=== PATIENT | female | born 1990 | race Caucasian/White ===

== ENCOUNTER 2016-10-09 05:41 | Inpatient (IN) ==
[2016-10-09] MEDS ORDERED: MEPERIDINE 50 MG/1 ML VIAL IV PRN (05:57)
[2016-10-09] MEDS ORDERED: ONDANSETRON 4 MG/2 ML VIAL IV PRN (05:57)
[2016-10-09] MEDS: LACTATED RINGERS 1,000 ML IV SCH ×2 (06:16→09:58)
[2016-10-09 07:04] LABS: Basophils % 0.4 % (0.0-0.8); Eosinophils # 0.1 10*3/uL (0.0-0.87); Eosinophils % 1.3 % (0.00-10.9); Hematocrit 38.1 VOL% (35.7-47.0); Hemoglobin 12.1 GM/DL (12.0-16.0); Immature Granulocytes % 0.8 %; Immature Granulocytes Absolute 0.08 #; Lymphocytes # 2.4 10*3/uL (1.4-4.0); Lymphocytes % 23.2 % (21.3-54.2); Mean Corpuscular HGB Conc 31.8 GM/DL (32-36); Mean Corpuscular Hemoglobin 28 PG (27-34); Mean Platelet Volume 10.6 FL (9.6-12.0); Monocytes # 0.7 10*3/uL (0.11-0.8); Monocytes % 6.8 % (1.7-12.7); Neutrophils % 67.5 % (38.7-73.9); Platelet Count 252 T/CUMM (130-400); Red Blood Count 4.28 MC/CUMM (3.8-5.5); Red Cell Distribution Width 13.7 % (9.3-17.3); White Blood Count 10.4 T/CUMM (4-12)
[2016-10-09] MEDS ORDERED: fentaNYL 2 MCG/ROPIV 0.2% EPID 150 ML EPIDURAL SCH (07:18)
[2016-10-09] MEDS ORDERED: FAMOTIDINE 20 MG/2 ML VIAL IV ONE (07:18)
[2016-10-09] MEDS ORDERED: ePHEDrine 50 MG/ML AMP IV PRN (07:18)
[2016-10-09] MEDS ORDERED: PROMETHAZINE 25 MG/1 ML VIAL IM ONE (07:18)
[2016-10-09] MEDS ORDERED: CITRIC ACID/SODIUM CITRATE 30 ML UDCUP PO ONE (07:18)
[2016-10-09] MEDS ORDERED: hydrOXYzine HCL 25 MG/1 ML VIAL IM PRN (07:18)
[2016-10-09] MEDS ORDERED: diphenhydrAMINE 50 MG/1 ML VIAL IV PRN ×2 (07:18)
[2016-10-09] MEDS ORDERED: LACTATED RINGERS 1,000 ML IV SCH ×2 (07:30)
[2016-10-09] MEDS ORDERED: OXYTOCIN/LR 20 UNIT/1,000 ML BAG IV SCH (07:30)
[2016-10-09 07:33] LABS: Albumin 2.8 G/DL (3.4-5.0); Calcium 8.4 MG/DL (8.5-10.1); Osmolality,Calculated 282.8 MOS/KG (273-304); Potassium 3.9 MMOL/L (3.5-5.1); Total Protein 6.3 G/DL (6.4-8.3)
[2016-10-09 12:49] LABS: Apearance,Urine CLEAR (Clear); Bilirubin,Urine Negative (Negative); Blood, Urine Negative (Negative); Glucose,Urine (UA) Negative (Negative); Hyaline Casts,Urine 1 /LPF (0-3); Ketones,Urine 5 mg/dL (Negative); Mucus,Urine Occasional /LPF (Occasional); Nitrite,Urine Negative (Negative); Protein,Urine Negative; RBC,Urine <1 /HPF (0-4); Urine Color Yellow (Yellow); Urine Specific Gravity 1.013 (1.001-1.035); Urine Urobilinogen < 2.0 EU/DL (0.2-1.0); WBC,Urine <1 /HPF (0-6)
[2016-10-09] MEDS ORDERED: BENZOCAINE 20%/MENTHOL 0.5% SPRAY 56 GM CAN TOP PRN (18:23)
[2016-10-09] MEDS: DOCUSATE SODIUM 100 MG CAPSULE PO SCH (21:35)
[2016-10-09] MEDS: IBUPROFEN 800 MG TABLET PO PRN (21:35)
[2016-10-09] MEDS ORDERED: OXYTOCIN/LR 20 UNIT/1,000 ML BAG IV ONE (21:52)
--- NOTE | 2016-10-10 01:32 | History and Physical Update ---
History and Physical Update - Dictation Physical: refer to scanned H&P - Physical Exam Mental Status: alert and oriented Heart: regular rate and rhythm Lung: clear to auscultation Abdomen: within normal limits Vitals: within normal limits History and Physical Changes: at 39 weeks admitted on 10/09/16 for induction. GBS negative. No complications. Labs wnl.
[2016-10-10 05:26] LABS: Basophils # 0.1 10*3/uL (0.0-0.2); Basophils % 0.4 % (0.0-0.8); Eosinophils # 0.1 10*3/uL (0.0-0.87); Eosinophils % 0.7 % (0.00-10.9); Hematocrit 32.8 VOL% (35.7-47.0); Hemoglobin 10.6 GM/DL (12.0-16.0); Immature Granulocytes % 0.7 %; Immature Granulocytes Absolute 0.09 #; Lymphocytes # 2.2 10*3/uL (1.4-4.0); Lymphocytes % 17.1 % (21.3-54.2); Mean Corpuscular HGB Conc 32.3 GM/DL (32-36); Mean Corpuscular Hemoglobin 29 PG (27-34); Mean Corpuscular Volume 88.2 FL (87-102); Mean Platelet Volume 10.7 FL (9.6-12.0); Monocytes % 7.5 % (1.7-12.7); Neutrophils # 9.5 10*3/uL (1.4-7.4); Neutrophils % 73.6 % (38.7-73.9); Platelet Count 189 T/CUMM (130-400); Red Blood Count 3.72 MC/CUMM (3.8-5.5); Red Cell Distribution Width 13.8 % (9.3-17.3); White Blood Count 12.9 T/CUMM (4-12)
--- NOTE | 2016-10-10 07:30 | OB/GYN Progress Note ---
Assessment and Plan (1) Perineal laceration with delivery, second degree Status: Acute Assessment and plan: Routine care Current Visit: Yes TRAVEL REGISTERED NURSE ONCOLOGY - PN: Subj Interval history: PPD#1 Doing well without complaints. Exam TRAVEL REGISTERED NURSE ONCOLOGY - Constitutional Vitals: Vital Signs Temp Pulse Resp BP Pulse Ox 10/10/16 03:45 97.3 F L 74 20 118/76 97 10/10/16 00:10 97.6 F 71 20 120/70 98 10/09/16 21:00 98.1 F 100 H 20 115/72 97 10/09/16 20:00 98.4 F 102 H 20 98 10/09/16 19:00 98 H 18 128/80 98 10/09/16 18:30 97 H 20 125/78 98 10/09/16 18:00 98.6 F 87 18 130/75 98 10/09/16 16:00 98.6 F 62 22 102/62 10/09/16 12:00 97.3 F L 98 H 18 121/82 98 10/09/16 08:00 98.5 F 90 20 111/87 General appearance: normal weight, no acute distress - Head Head exam: Present: normal inspection, normocephalic - Eye Eye exam: Present: EOMI - Respiratory Respiratory exam: Present: clear to auscultation bilaterally - Cardiovascular Cardiovascular exam: Present: regular rate and rhythm - GI/Abdominal GI/Abdominal exam: Present: soft (fundus firm, nontender) - Extremities Exam Extremities exam: Present: normal inspection - Neurological Exam Neurological exam: Present: alert, oriented X3 - Psychiatric Psychiatric exam: Present: normal affect, normal mood - Skin Skin exam: Present: normal color, warm Results - Labs CBC & BMP: 10/10/16 04:19 10/09/16 06:09 Lab Results: I have reviewed the past 24 hour labs
--- NOTE | 2016-10-10 07:32 | Discharge Summary ---
Hospital Course - Hospital Course Hospital Course: Pt admitted for induction. She delivered without complication. Her course has been unremarkable. Diagnosis - Discharge Diagnosis (1) Perineal laceration with delivery, second degree Status: Acute Discharge Plan - Discharge Data Disposition: Disch To Home/Self Care Condition at Discharge: Stable Discharge Diet: regular diet Activity: other (pelvic rest x 6 wks) Hygiene: may shower Weight Bearing at Discharge: full weight bearing Driving: no restrictions Contact your physician if you experience:: fever over 101, Difficulty voiding, Redness or swelling, Nausea/Vomiting, Shortness of breath, Bleeding, pain uncontrolled by pain medications - Discharge Medications New Ibuprofen Tab [Motrin Tab] 800 mg PO Q6H PRN #30 tablet PRN Reason: Pain oxyCODONE/ACETAMINOPHEN 5-325 [Percocet 5-325] 2 tablet PO Q4H PRN #20 tablet PRN Reason: Pain Moderate (4-7) No Action Pnv95/Ferrous Fumarate/FA [ Tablet] 1 tablet PO DAILY - Follow Up or Referral Follow Up: Haley Del Cid DO [Physician] - (6 weeks) - Forms/Instructions Exam - Constitutional Vitals: Period Temp Pulse Resp BP Sys/[place] Pulse Ox Last 24 Hr 97.3 F-98.6 F 62-102 18-22 102-130/62-87 97-98 General appearance: normal weight, no acute distress - Head Head exam: Present: normal inspection, normocephalic - Eye Eye exam: Present: EOMI - Respiratory Respiratory exam: Present: clear to auscultation bilaterally - Cardiovascular Cardiovascular exam: Present: regular rate and rhythm - GI/Abdominal GI/Abdominal exam: Present: soft (fundus firm, nontender) - Extremities Exam Extremities exam: Present: normal inspection - Neurological Exam Neurological exam: Present: alert, oriented X3 - Psychiatric Psychiatric exam: Present: normal affect, normal mood - Skin Skin exam: Present: normal color, warm Discharge Results Labs on day of discharge: Labs from last 24 hours 10/10/16 10/09/16 10/09/16 04:19 12:15 06:09 WBC 12.9 H RBC 3.72 L Hgb 10.6 L Hct 32.8 L MCV 88.2 MCH 29 MCHC 32.3 RDW 13.8 Plt Count 189 D MPV 10.7 Neut % (Auto) 73.6 Lymph % (Auto) 17.1 L Armstrong % (Auto) 7.5 Eos % (Auto) 0.7 Baso % (Auto) 0.4 Neut # (Auto) 9.5 H Lymph # (Auto) 2.2 Armstrong # (Auto) 1.0 H Eos # (Auto) 0.1 Baso # (Auto) 0.1 Immature Gran % 0.7 Nucleated RBC % 0.0 Immature Gran # 0.09 Nucleated RBCs # 0.00 Sodium Potassium Chloride Carbon Dioxide Anion Gap BUN Creatinine GFR Calculation BUN/Creatinine Ratio Glucose Calculated Osmolality Calcium Total Bilirubin AST ALT Alkaline Phosphatase Total Protein Albumin Globulin Albumin/Globulin Ratio Urine Color Yellow Urine Appearance Clear Urine pH 7.0 Ur Specific [place] 1.013 Urine Protein Negative Urine Glucose (UA) Negative Urine Ketones 5 Urine Blood Negative Urine Nitrate Negative Urine Bilirubin Negative Urine Urobilinogen < 2.0 H Urine Leukocytes Negative Urine RBC <1 Urine WBC <1 Hyaline Casts 1 Urine Mucus Occasional Ur Culture Indicated? Not indicated Blood Type A POSITIVE Antibody Screen Negative 10/09/16 06:09 WBC RBC Hgb Hct MCV MCH MCHC RDW Plt Count MPV Neut % (Auto) Lymph % (Auto) Armstrong % (Auto) Eos % (Auto) Baso % (Auto) Neut # (Auto) Lymph # (Auto) Armstrong # (Auto) Eos # (Auto) Baso # (Auto) Immature Gran % Nucleated RBC % Immature Gran # Nucleated RBCs # Sodium 144 Potassium 3.9 Chloride 109 H Carbon Dioxide 23 Anion Gap 15.9 H BUN 7 Creatinine 0.70 GFR Calculation 136 BUN/Creatinine Ratio 10.00 Glucose 74 Calculated Osmolality 282.8 Calcium 8.4 L Total Bilirubin 1.00 AST 13 ALT 16 Alkaline Phosphatase 159 H Total Protein 6.3 L Albumin 2.8 L Globulin 3.5 Albumin/Globulin Ratio 0.8 L Urine Color Urine Appearance Urine pH Ur Specific [place] Urine Protein Urine Glucose (UA) Urine Ketones Urine Blood Urine Nitrate Urine Bilirubin Urine Urobilinogen Urine Leukocytes Urine RBC Urine WBC Hyaline Casts Urine Mucus Ur Culture Indicated? Blood Type Antibody Screen DS: Provider Date of admission: 10/09/16 05:57 Primary care physician: Desmond Cantu Attending physician on admission: Haley Del Cid DO Consults: 10/09/16 05:57 Consult to Anesthesiology [CONS] Routine Consulting Provider: Reason for Anesthesiology: Epidural Consult Comment: Epidural for pain managment Discharging clinician: Haley Del Cid DO Expected date of discharge: 10/11/16
--- NOTE | 2016-10-10 08:19 | Anesthesia ---
Anesthesia Post OP - Post Ansesthetic Evaluation Patient seen in post op: Yes Resp: within normal limits CV: within normal limits Mental: within normal limits Temp: within normal limits [id number]: within normal limits Nausea and Vomiting: within normal limits Pain: within normal limits
[2016-10-10] MEDS: DOCUSATE SODIUM 100 MG CAPSULE PO SCH (09:25)
[2016-10-10] MEDS: oxyCODONE/ACETAMINOPHEN 5-325 MG TABLET PO PRN ×2 (11:45→17:49)
[2016-10-10] MEDS: IBUPROFEN 800 MG TABLET PO PRN ×2 (11:45→17:48)
[2016-10-11] MEDS: IBUPROFEN 800 MG TABLET PO PRN (08:30)
[2016-10-11] MEDS: DOCUSATE SODIUM 100 MG CAPSULE PO SCH (08:30)
[2016-10-11] MEDS: oxyCODONE/ACETAMINOPHEN 5-325 MG TABLET PO PRN (08:30)
--- NOTE | 2016-10-11 11:48 | Pathology Report from [facility] ---
ACCESSION # : [id number] PATIENT NAME : Meena Burger ORDERING DR : GISSELLE PABLO CLINICAL HX: IUP at 39 weeks, labor POST-OP DX: Same SPECIMEN INFO: Placenta GROSS DESCRIPTION: Received fresh labeled "MEENA BURGER & PLACENTA" is a 435 gm placenta measuring 19.5 x 15.0 x 2.3 cm. The membranes are pink feldman and translucent. The umbilical cord measures 46.0 cm, contains three vessels and is pericentrally inserted. The surface is blue rdz and intact. The maternal surface is hemorrhagic and intact with no abnormalities appreciated upon sectioning. Sections submitted A- membranes and cord, B- and maternal surfaces. DIAGNOSIS FOR MEENA BURGER: PLACENTA, MEMBRANES, UMBILICAL CORD: Focal placental infarction with mild intervillous blood. Tri-vessel umbilical cord, pericentrally inserted. Membranes with focal chronic inflammation and attached blood. SERVICE DATE: 10/10/2016 REPORT DATE: 10/11/2016 PATHOLOGIST: Yefri Ramos
[2016-10-11 11:56] VITALS: BP 115/81
== END 2016-10-11 12:55 | disposition home or self-care (01) | DRG 775 ==
LOC: N.LDOUT 05:41 → N.LD 05:45 → N.OB 17:57
PROVIDERS: ADMIT Obstetrics & Gynecology; ATTEND Obstetrics & Gynecology

== ENCOUNTER 2021-02-16 06:58 | Inpatient (IN) ==
[2021-02-16] MEDS ORDERED: BUTORPHANOL 2 MG/ML VIAL IV PRN (08:23)
[2021-02-16] MEDS ORDERED: MEPERIDINE 50 MG/1 ML VIAL IM PRN (08:23)
[2021-02-16] MEDS ORDERED: LACTATED RINGERS 500 ML IV PRN (08:23)
[2021-02-16] MEDS ORDERED: ONDANSETRON 4 MG/2 ML VIAL IV PRN (08:23)
[2021-02-16 08:43] LABS: Basophils # 0.1 10*3/uL (0.0-0.2); Basophils % 0.5 % (0.0-0.8); Eosinophils # 0.1 10*3/uL (0.0-0.87); Eosinophils % 0.9 % (0.00-10.9); Hematocrit 34.7 VOL% (35.7-47.0); Hemoglobin 11.1 GM/DL (12.0-16.0); Immature Granulocytes % 2.1 %; Immature Granulocytes Absolute 0.27 #; Lymphocytes # 1.7 10*3/uL (1.4-4.0); Lymphocytes % 13.5 % (21.3-54.2); Mean Corpuscular Volume 88.5 FL (87-102); Mean Platelet Volume 9.7 FL (9.6-12.0); Monocytes % 7.6 % (1.7-12.7); Neutrophils % 75.4 % (38.7-73.9); Platelet Count 238 T/CUMM (130-400); Red Blood Count 3.92 MC/CUMM (3.8-5.5); Red Cell Distribution Width 13.5 % (9.3-17.3); White Blood Count 12.6 T/CUMM (4-12)
[2021-02-16] MEDS ORDERED: LACTATED RINGERS 1,000 ML IV ONE ×2 (08:58→11:18)
[2021-02-16] MEDS ORDERED: FAMOTIDINE 20 MG/2 ML VIAL IV ONE (08:58)
[2021-02-16] MEDS ORDERED: CITRIC ACID/SODIUM CITRATE 30 ML UDCUP PO ONE (08:58)
[2021-02-16] MEDS ORDERED: ePHEDrine 50 MG/ML VIAL IV PRN (08:59)
[2021-02-16] MEDS ORDERED: diphenhydrAMINE 50 MG/1 ML VIAL IV PRN (08:59)
[2021-02-16 09:02] LABS: Albumin 2.7 G/DL (3.4-5.0); Bilirubin,Total 0.5 MG/DL (0.20-1.00); Calcium 8.8 MG/DL (8.5-10.1); Osmolality,Calculated 275.4 MOS/KG (273-304); Potassium 3.7 MMOL/L (3.5-5.1); Total Protein 6.7 G/DL (6.4-8.2)
[2021-02-16 09:21] LABS: Hepatitis B Surface Ag Quant < 0.10 Index; Hepatitis B Surface Ag Result Non-Reactive (NonReactive)
[2021-02-16 09:30] LABS: HIV Antigen/Antibody Result Nonreactive (Nonreactive)
[2021-02-16] MEDS: LACTATED RINGERS 1,000 ML IV SCH ×2 (09:37→17:42)
[2021-02-16 09:43] LABS: Bilirubin,Urine Negative (Negative); Blood, Urine Negative (Negative); Glucose,Urine (UA) Negative (Negative); Ketones,Urine Negative (Negative); Mucus,Urine Occasional /LPF (Occasional); Nitrite,Urine Negative (Negative); Protein,Urine Negative; RBC,Urine 1 /HPF (0-4); Squamous Epithelial Cell,Urine Few /HPF (0-10); Urine Appearance Slightly Hazy (Clear); Urine Color Yellow (Yellow); Urine Specific Gravity 1.012 (1.001-1.035); Urine Urobilinogen < 2.0 EU/DL (0.2-1.0)
[2021-02-16] MEDS ORDERED: BUPIVACAINE SPINAL 0.75% 2 ML AMP SPINAL ONE (10:53)
[2021-02-16] MEDS ORDERED: OXYTOCIN/LR 20 UNIT/1,000 ML BAG IV SCH (11:00)
[2021-02-16] MEDS ORDERED: PHENYLEPHRINE 1 MG/10 ML SYRINGE IV ONE (11:07)
[2021-02-16] MEDS ORDERED: BETAMETH SODIUM PHOS/ACETATE 30 MG/5 ML VIAL IM SCH (11:33)
[2021-02-16] MEDS: BETAMETH SODIUM PHOS/ACETATE 30 MG/5 ML VIAL IM SCH (11:48)
[2021-02-16 12:29] LABS: Bilirubin,Urine Negative (Negative); Blood, Urine Negative (Negative); Glucose,Urine (UA) Negative (Negative); Ketones,Urine Negative (Negative); Mucus,Urine Occasional /LPF (Occasional); Nitrite,Urine Negative (Negative); Protein,Urine Negative; RBC,Urine 3 /HPF (0-4); Urine Appearance CLEAR (Clear); Urine Color Straw (Yellow); Urine Specific Gravity 1.008 (1.001-1.035); Urine Urobilinogen < 2.0 EU/DL (0.2-1.0)
[2021-02-17] MEDS: BETAMETH SODIUM PHOS/ACETATE 30 MG/5 ML VIAL IM SCH (12:25)
[2021-02-18] MEDS ORDERED: CITRIC ACID/SODIUM CITRATE 30 ML UDCUP PO PRN (04:19)
[2021-02-18] MEDS ORDERED: ceFAZolin 2,000 MG/50 ML DUPLEX IV PRN (07:00)
[2021-02-18] MEDS ORDERED: FAMOTIDINE 20 MG/2 ML VIAL IV PRN (07:00)
[2021-02-18] MEDS ORDERED: miSOPROStoL 200 MCG TABLET ONE (07:29)
[2021-02-18] MEDS ORDERED: TRANEXAMIC ACID 1,000 MG/10 ML VIAL ONE (07:30)
[2021-02-18] MEDS ORDERED: OXYTOCIN/LR 20 UNIT/1,000 ML BAG IV ONE ×3 (07:30→11:15)
[2021-02-18] MEDS ORDERED: CARBOPROST TROMETHAMINE 250 MCG/ML AMP IM ONE (07:30)
[2021-02-18] MEDS ORDERED: METHYLERGONOVINE 0.2 MG/1 ML AMP ONE (07:30)
[2021-02-18] MEDS ORDERED: SODIUM CHLORIDE 0.9% 0 ML IV ONE (07:32)
[2021-02-18] MEDS: LACTATED RINGERS 1,000 ML IV SCH (07:48)
[2021-02-18] MEDS ORDERED: ONDANSETRON 4 MG/2 ML VIAL ONE ×2 (08:51)
[2021-02-18] MEDS ORDERED: KETOROLAC 30 MG/1 ML VIAL ONE ×2 (08:52)
[2021-02-18 09:42] LABS: Cord Venous Blood HCO3 22.6 MMOL/L; Cord Venous Blood PCO2 39.2 MMHG; Cord Venous Blood PO2 36.9
[2021-02-18 09:43] LABS: Bilirubin,Urine Negative (Negative); Blood, Urine Negative (Negative); Glucose,Urine (UA) Negative (Negative); Ketones,Urine Negative (Negative); Mucus,Urine Occasional /LPF (Occasional); Nitrite,Urine Negative (Negative); Protein,Urine Negative; RBC,Urine <1 /HPF (0-4); Urine Appearance CLEAR (Clear); Urine Color Straw (Yellow); Urine Specific Gravity 1.009 (1.001-1.035); Urine Urobilinogen < 2.0 EU/DL (0.2-1.0)
[2021-02-18] MEDS ORDERED: SIMETHICONE CHEW 80 MG TABLET PO PRN (09:54)
[2021-02-18] MEDS ORDERED: ACETAMINOPHEN 325 MG TABLET PO PRN (09:54)
[2021-02-18] MEDS ORDERED: RHO(D) IMMUNE GLOBULIN 300 MCG SYRINGE IM ONE (09:54)
[2021-02-18] MEDS ORDERED: ONDANSETRON 4 MG/2 ML VIAL IV PRN (09:54)
[2021-02-18] MEDS ORDERED: oxyCODONE/ACETAMINOPHEN 5-325 MG TABLET PO PRN (09:57)
[2021-02-18] MEDS ORDERED: LACTATED RINGERS 1,000 ML IV SCH (10:00)
[2021-02-18] MEDS ORDERED: HYDROmorphone 2 MG/1 ML VIAL IV PRN (10:08)
[2021-02-18] MEDS ORDERED: hydrOXYzine HCL 25 MG/1 ML VIAL IM PRN (10:08)
[2021-02-18] MEDS: ACETAMINOPHEN 500 MG TABLET PO SCH ×2 (13:16→19:17)
[2021-02-18] MEDS: KETOROLAC 30 MG/1 ML VIAL IV SCH ×2 (15:24→23:20)
[2021-02-18] MEDS: DOCUSATE SODIUM 100 MG CAPSULE PO SCH (21:31)
[2021-02-19] MEDS: ACETAMINOPHEN 500 MG TABLET PO SCH ×2 (01:45→06:41)
[2021-02-19] MEDS: KETOROLAC 30 MG/1 ML VIAL IV SCH (04:03)
[2021-02-19 06:21] LABS: Basophils # 0.1 10*3/uL (0.0-0.2); Basophils % 0.5 % (0.0-0.8); Eosinophils # 0.1 10*3/uL (0.0-0.87); Eosinophils % 0.5 % (0.00-10.9); Hematocrit 27.8 VOL% (35.7-47.0); Hemoglobin 8.9 GM/DL (12.0-16.0); Immature Granulocytes % 2.4 %; Immature Granulocytes Absolute 0.36 #; Lymphocytes # 2.1 10*3/uL (1.4-4.0); Lymphocytes % 13.9 % (21.3-54.2); Mean Corpuscular Volume 91.7 FL (87-102); Mean Platelet Volume 9.9 FL (9.6-12.0); Neutrophils % 74.7 % (38.7-73.9); Platelet Count 252 T/CUMM (130-400); Red Blood Count 3.03 MC/CUMM (3.8-5.5); Red Cell Distribution Width 14.1 % (9.3-17.3); White Blood Count 14.9 T/CUMM (4-12)
[2021-02-19] MEDS: MULTIVITAMIN (PRENATAL) TABLET PO SCH (09:45)
[2021-02-19] MEDS: DOCUSATE SODIUM 100 MG CAPSULE PO SCH ×2 (09:45→21:12)
[2021-02-19] MEDS: MAGNESIUM HYDROXIDE SUSP 30 ML UDCUP PO PRN (09:46)
[2021-02-19] MEDS: IBUPROFEN 800 MG TABLET PO PRN ×2 (13:49→21:48)
[2021-02-19] MEDS: FERROUS SULFATE 325 MG TABLET PO SCH (21:12)
[2021-02-20] MEDS: DOCUSATE SODIUM 100 MG CAPSULE PO SCH (09:24)
[2021-02-20] MEDS: IBUPROFEN 800 MG TABLET PO PRN (09:24)
[2021-02-20] MEDS: MULTIVITAMIN (PRENATAL) TABLET PO SCH (09:24)
[2021-02-20] MEDS: MAGNESIUM HYDROXIDE SUSP 30 ML UDCUP PO PRN (09:24)
[2021-02-20] MEDS: FERROUS SULFATE 325 MG TABLET PO SCH (09:24)
[2021-02-20 10:42] VITALS: BP 125/88
[2021-02-20] MEDS ORDERED: DIPH/TET/ACEL PERT BOOSTER VACCINE 0.5 ML VIAL IM ONE (11:42)
== END 2021-02-20 12:25 | disposition home or self-care (01) | DRG 787 ==
LOC: N.LD 06:58 → N.OB 02-18 14:30
PROVIDERS: ADMIT Obstetrics & Gynecology; ATTEND Obstetrics & Gynecology
PROC: LDCSECT (ICD-10-PCS; 2021-02-18 08:50)